=== PATIENT | male | born 1945 | race Caucasian/White ===

== ENCOUNTER 2017-09-01 07:54 | Inpatient (IN) | payer MEDICARE, MEDICAID ==
[2017-08-25 12:18] LABS: BASOPHILS % (AUTO) 0.6 % (0-1); EOSINOPHILS # (AUTO) 0.2 X10'3 (0-0.9); EOSINOPHILS % (AUTO) 2.5 % (0-6); LYMPHOCYTES # (AUTO) 1.9 X10'3 (1.1-4.8); LYMPHOCYTES % (AUTO) 28.5 % (21-51); MEAN CORPUSCULAR HEMOGLOBIN 28.7 PG (27.0-31.0); MEAN CORPUSCULAR HGB CONC 32.8 % (33.0-36.5); MEAN CORPUSCULAR VOLUME 87.5 FL (78-98); MEAN PLATELET VOLUME 8.3 FL (7.4-10.4); MONOCYTES # (AUTO) 0.6 X10'3 (0-0.9); MONOCYTES % (AUTO) 9.2 % (2-12); NEUTROPHILS # (AUTO) 3.9 X10'3 (1.8-7.7); NEUTROPHILS % (AUTO) 59.2 % (42-75); PRE OP HEMATOCRIT 43.9 % (42.0-52.0); PRE OP HEMOGLOBIN 14.4 g/dL (14.0-17.9); PRE OP PLATELET COUNT 175 X10'3 (140-440); RED BLOOD COUNT 5.02 X10'6 (4.70-6.10); RED CELL DISTRIBUTION WIDTH 14.9 % (11.5-14.5)
[2017-08-25 12:30] LABS: PRE OP PROTIME 9.9 SECONDS (9.0-12.0)
[2017-08-25 12:38] LABS: ALBUMIN 4.2 G/DL (3.4-5.0); ALBUMIN/GLOBULIN RATIO 1.3 (1.1-1.5); ALKALINE PHOSPHATASE 69 IU/L (46-116); BLOOD UREA NITROGEN 22 MG/DL (7-18); BUN/CREATININE RATIO 18.8 (5.4-32.0); CALCIUM 9.1 MG/DL (8.5-10.1); CHLORIDE 105 MMOL/L (99-107); CREATININE 1.17 MG/DL (0.60-1.10); PRE OP ALT 31 U/L (30-65); PRE OP ANION GAP 10 (8-16); PRE OP AST 16 U/L (10-37); PRE OP BILIRUB, TOTAL 0.5 MG/DL (0.0-1.0); PRE OP POTASSIUM 4.5 MMOL/L (3.4-5.1); PRE OP SODIUM 140 MMOL/L (135-145); TOTAL PROTEIN 7.5 G/DL (6.4-8.2); eGFR 62 ML/MIN
[2017-08-25 12:41] LABS: PRE OP GLUCOSE 231 MG/DL (70-104)
[2017-08-25 12:58] LABS: HEMOGLOBIN A1C 8.1 % (4.5-6.2)
[2017-09-01] VITALS (17 sets, daily range): BP systolic 102–169; BP diastolic 49–97
[~2017-09-01] VITALS: Ht 172.7 cm; Wt 99.3 kg
[~2017-09-01 07:54] MED LIST: ACAR50TA3 PO; ASPI-1265 PO; COL0.6T PO; DICL100G15 TOP; DOCU100C23 PO; GABA-532 PO; GLUC-133 PO; HYDR-3973 PO; ICOS1CAP PO; LANTUS SQ; LIDO700A47 TOP; LISI10TA4 PO; LORA0.5T PO; LORA1TAB PO; METF10002 PO; NABU500T2 PO; ROSU5TAB9 PO; THIO300C PO; TRIA15CR61 TOP; ceFAZolin 2gm in dextrose, iso 100 ML IV ONE; famotidine 20mg tablet PO ONE; ringers solution, lacted 1,000 ML IV SCH; vancomycin inj 1,500 MG in normal saline 300ml IV soln IV ONE
[2017-09-01] MEDS ORDERED: ringers solution, lacted 1,000 ML IV SCH (08:43)
[2017-09-01] MEDS ORDERED: ondansetron/PF 4mg/2ml inj IV PRN ×2 (08:45→13:20)
[2017-09-01] MEDS ORDERED: proCHLORperazine 10 MG/2 ml inj IV PRN (08:45)
[2017-09-01] MEDS ORDERED: meperidine/PF 25mg/ml syringe IV PRN ×3 (08:45)
[2017-09-01] MEDS ORDERED: ketorolac trometh. 30mg/ml inj. ONE (10:25)
[2017-09-01] MEDS ORDERED: Thrombin (Bovine) 5,000 unit vial TP ONE (10:26)
[2017-09-01] MEDS ORDERED: ROPIVAcaine 0.5% (5mg/ml) 30ml vial ONE (10:26)
[2017-09-01] MEDS ORDERED: gelatin sponge, absorbable (Gelfoam 100) sponge TP ONE (10:26)
[2017-09-01] MEDS ORDERED: vancomycin 1,000mg inj ONE (10:26)
[2017-09-01] MEDS ORDERED: tranexamic acid inj. 1,000 MG in normal saline 100ml IV soln 90 ML IV ONE ×2 (10:50→12:00)
[2017-09-01] MEDS ORDERED: desflurane 240ml liquid inh. IH ONE (10:57)
[2017-09-01] MEDS ORDERED: fentaNYL/PF 50MCG/1 ML 2ML syringe ONE (11:13)
[2017-09-01] MEDS ORDERED: midazolam 2 mg/2 ml injection ONE (11:13)
[2017-09-01] MEDS ORDERED: propofol inj 20 ML IV ONE (11:39)
[2017-09-01] MEDS ORDERED: ePHEDrine 50MG/ML INJ. ONE (11:39)
[2017-09-01] MEDS ORDERED: LIDOcaine 1%/PF (10mg/ml) 5ml vial ONE (11:39)
[2017-09-01] MEDS ORDERED: acetaminophen 325mg tablet PO PRN (13:20)
[2017-09-01] MEDS ORDERED: bisacodyl 10mg suppository rectal RC PRN (13:20)
[2017-09-01] MEDS ORDERED: diphenhydrAMINE 25mg capsule PO PRN ×2 (13:20)
[2017-09-01] MEDS ORDERED: magnesium hydroxide 30ml (MOM) UD suspension PO PRN (13:20)
[2017-09-01] MEDS ORDERED: HYDROmorphone 1 mg/ml syringe IV PRN ×2 (13:20)
[2017-09-01] MEDS ORDERED: oxyCODONE IR 5mg (immed. release) tablet PO PRN ×2 (13:20)
[2017-09-01] MEDS ORDERED: DICLOFENAC SODIUM TOP PRN (13:40)
[2017-09-01] MEDS ORDERED: TRIAMCINOLONE ACETONIDE 0.5% TOP PRN (13:40)
[2017-09-01] MEDS: acetaminophen 325mg tablet PO SCH ×2 (15:39→20:25)
[2017-09-01] MEDS: ketorolac tromethamine 15mg/ml inj. IV SCH ×2 (15:40→20:26)
[2017-09-01] MEDS ORDERED: tranexamic acid inj. 1,000 MG in normal saline 100ml IV soln 100 ML IV ONE (16:34)
[2017-09-01] MEDS: potassium cl 20mEq in 1/2 NS 1,000 ML IV SCH ×2 (17:21→21:16)
[2017-09-01] MEDS: ceFAZolin inj. 1,000 MG in dextrose 5%-water 50ml 50 ML IV SCH (17:30)
[2017-09-01] MEDS: acarbose 50mg tablet PO SCH (18:56)
[2017-09-01] MEDS ORDERED: NABUMETONE PO SCH (20:00)
[2017-09-01] MEDS ORDERED: vancomycin/NS 1 GM ADD-VANTAGE 250 ML IV SCH (20:00)
[2017-09-01] MEDS ORDERED: THIOCTIC ACID PO SCH (20:00)
[2017-09-01] MEDS: metFORMIN 500mg tablet PO SCH (20:17)
[2017-09-01] MEDS: celeCOXIB 100mg capsule PO SCH (20:19)
[2017-09-01] MEDS: gabapentin 300mg capsule PO SCH (20:19)
[2017-09-01] MEDS ORDERED: sennosides 8.6mg tablet PO SCH (21:00)
[2017-09-01] MEDS ORDERED: LORazepam 0.5 MG tablet PO SCH (21:00)
[2017-09-01] MEDS ORDERED: Insulin Detemir pen SQ SCH (21:00)
[2017-09-01] MEDS ORDERED: docusate sod 100mg capsule PO SCH (21:00)
[2017-09-02] MEDS: ceFAZolin inj. 1,000 MG in dextrose 5%-water 50ml 50 ML IV SCH (00:06)
[2017-09-02] MEDS: ketorolac tromethamine 15mg/ml inj. IV SCH ×2 (01:52→08:18)
[2017-09-02] MEDS: acetaminophen 325mg tablet PO SCH ×2 (01:53→08:18)
[2017-09-02 02:00] VITALS: BP 125/66
[2017-09-02] MEDS: potassium cl 20mEq in 1/2 NS 1,000 ML IV SCH (05:21)
[2017-09-02 06:00] VITALS: BP 138/64
[2017-09-02 07:20] LABS: BASOPHILS % (AUTO) 0.1 % (0-1); EOSINOPHILS # (AUTO) 0.1 X10'3 (0-0.9); EOSINOPHILS % (AUTO) 0.9 % (0-6); HEMATOCRIT 38.7 % (42.0-52.0); HEMOGLOBIN 12.6 g/dl (14.0-17.9); LYMPHOCYTES # (AUTO) 1.3 X10'3 (1.1-4.8); LYMPHOCYTES % (AUTO) 12.7 % (21-51); MEAN CORPUSCULAR HEMOGLOBIN 28.7 PG (27.0-31.0); MEAN CORPUSCULAR HGB CONC 32.6 % (33.0-36.5); MEAN CORPUSCULAR VOLUME 87.8 FL (78-98); MEAN PLATELET VOLUME 9.4 FL (7.4-10.4); MONOCYTES # (AUTO) 0.7 X10'3 (0-0.9); MONOCYTES % (AUTO) 7.4 % (2-12); NEUTROPHILS % (AUTO) 78.9 % (42-75); PLATELET COUNT 156 X10'3 (140-440); RED BLOOD COUNT 4.41 X10'6 (4.70-6.10); RED CELL DISTRIBUTION WIDTH 14.2 % (11.5-14.5); WHITE BLOOD COUNT 10.1 X10'3 (4.5-11.0)
[2017-09-02 07:38] LABS: ANION GAP 11 (8-16); CHLORIDE 106 MMOL/L (99-107); POTASSIUM 4.6 MMOL/L (3.5-5.1); SODIUM 139 MMOL/L (135-145)
[2017-09-02] MEDS ORDERED: aspirin 81mg tab.chew PO SCH (08:00)
[2017-09-02] MEDS ORDERED: lisinopril 10 MG tablet PO SCH (08:00)
[2017-09-02] MEDS ORDERED: atorvastatin 20mg tablet PO SCH (08:00)
[2017-09-02] MEDS: celeCOXIB 100mg capsule PO SCH (08:16)
[2017-09-02] MEDS: acarbose 50mg tablet PO SCH (08:17)
[2017-09-02] MEDS: metFORMIN 500mg tablet PO SCH (08:17)
[2017-09-02] MEDS: gabapentin 300mg capsule PO SCH (08:17)
[2017-09-02] MEDS ORDERED: aspirin 325mg tablet PO SCH (08:30)
== END 2017-09-02 11:15 | disposition home or self-care (01) | DRG 483 ==
LOC: PAS IN 07:54 → EDSTATUS 12:00 → ORTHO 4S 14:35
PROVIDERS: ADMIT Orthopaedic Surgery; ATTEND Orthopaedic Surgery
PROC: 0LS40ZZ Reposition Left Upper Arm Tendon, Open Approach (ICD-10-PCS; 2017-09-01)
PROC: 0RRK00Z Replacement of Left Shoulder Joint with Reverse Ball and Socket Synthetic Substitute, Open Approach (ICD-10-PCS; principal; 2017-09-01 10:57)
DX: M19.012 Primary osteoarthritis, left shoulder (principal); E11.42 Type 2 diabetes mellitus with diabetic polyneuropathy; M75.22 Bicipital tendinitis, left shoulder; I10 Essential (primary) hypertension; E78.5 Hyperlipidemia, unspecified; M10.9 Gout, unspecified; M75.122 Complete rotator cuff tear or rupture of left shoulder, not specified as traumatic; F41.9 Anxiety disorder, unspecified; G89.29 Other chronic pain; G56.01 Carpal tunnel syndrome, right upper limb; E66.01 Morbid (severe) obesity due to excess calories; Z68.33 Body mass index [BMI] 33.0-33.9, adult
CPT/HCPCS: 36415; 80051; 80053; 82948; 83036; 85025; 85610; 85730; 87070; 93005; 97110; 97116; 97161; A4565; A6255; A7000; J0690; J1815; J1885; J2001; J2250; J2704; J2795; J3010; J3370; J7060; J7120; Q0163